=== PATIENT | female | born 1985 | race Two or more races ===

== ENCOUNTER → 2021-10-24 | Emergency (ER) | payer OTHER ==
[~2021-10-24] VITALS: Ht 170.2 cm; Wt 84.8 kg
[2021-10-24 21:01] VITALS: BP 117/78
== END | disposition left against medical advice (07) ==
LOC: ER 20:53
DX: J02.9 Acute pharyngitis, unspecified (principal); R05.9 Cough, unspecified; Z53.21 Procedure and treatment not carried out due to patient leaving prior to being seen by health care provider

== ENCOUNTER 2022-07-24 10:17 | Emergency (ER) | payer OTHER ==
[~2022-07-24] VITALS: Ht 170.2 cm; Wt 80.8 kg
[2022-07-24 10:37] VITALS: BP 112/63
[2022-07-24] MEDS ORDERED: diphenhdrAMINE HCL 50 MG/1 ML VL IM ONE (11:00)
[2022-07-24] MEDS ORDERED: methylPREDNISolone SOD SUCC 125 MG/2 ML VL IM ONE (11:00)
[2022-07-24] MEDS ORDERED: EPINEPHrine HCL 1 MG/1 ML AMP SC ONE (11:00)
[2022-07-24] MEDS ORDERED: HYDR50CA PO (11:10)
[2022-07-24] MEDS ORDERED: PRED20TA2 PO ×2 (11:10→11:37)
== END 2022-07-24 11:39 | disposition home or self-care (01) ==
LOC: ER 10:17
DX: T78.40XA Allergy, unspecified, initial encounter (principal); X58.XXXA Exposure to other specified factors, initial encounter
CPT/HCPCS: 96372; 99284; J0171; J1200; J2930

== ENCOUNTER 2022-07-26 12:09 | Emergency (ER) | payer OTHER ==
[~2022-07-26] VITALS: Ht 170.2 cm; Wt 79.5 kg
[~2022-07-26 12:09] MED LIST: HYDR50CA PO; PRED20TA2 PO
[2022-07-26 14:24] VITALS: BP 109/69
[2022-07-26] MEDS ORDERED: diphenhdrAMINE HCL 50 MG/1 ML VL IM ONE (14:45)
[2022-07-26 15:11] LABS: Basophils # (auto) 0 10 ^3/uL (0-0.2); Basophils % (auto) 0.3 % (0.0-2.0); Eosinophils # (auto) 0 10 ^3/uL (0-0.8); Hematocrit 40.3 % (36.0-46.0); Hemoglobin 13.5 g/dL (12.2-16.2); Lymphocytes % (auto) 7.1 % (10.0-50.0); Mean Corpuscular Hemoglobin 31.8 pg (28.0-32.0); Mean Corpuscular Hgb Conc. 33.5 g/dL (32.0-36.0); Mean Corpuscular Volume 94.9 fL (80.0-100.0); Monocytes # (auto) 0.3 10 ^3/uL (0-1.3); Monocytes % (auto) 2.4 % (0.0-12.0); Neutrophils # (auto) 12.8 10 ^3/uL (1.6-8.6); Neutrophils % (auto) 90.2 % (37.0-80.0); Red Blood Cells 4.24 10^6/uL (4.0-5.20); Red Cell Distribution Width 13.2 % (11.8-14.3); White Blood Cell 14.2 10^3/uL (4.4-10.8)
[2022-07-26] MEDS ORDERED: EPIN0.1I11 IM (15:11)
[2022-07-26] MEDS ORDERED: EPINEPHrine HCL 1 MG/1 ML AMP IM ONE (15:15)
[2022-07-26 15:30] LABS: Albumin 3.9 g/dL (3.4-5.0); Calcium 8.6 mg/dL (8.5-10.1)
[2022-07-26 15:33] LABS: BUN/Creatinine Ratio 25.4; Bilirubin, Total 0.7 mg/dL (0.2-1.0); Total Protein 7.4 g/dL (6.4-8.2)
== END 2022-07-26 16:43 | disposition home or self-care (01) ==
LOC: ER 12:09
DX: T78.40XA Allergy, unspecified, initial encounter (principal); X58.XXXA Exposure to other specified factors, initial encounter; Z79.899 Other long term (current) drug therapy
CPT/HCPCS: 36415; 80053; 85025; 96372; 99284; J0171; J1200

== ENCOUNTER 2022-10-27 23:06 | Emergency (ER) | payer OTHER ==
[~2022-10-27] VITALS: Ht 170.2 cm; Wt 84.2 kg
[~2022-10-27 23:06] MED LIST changes: +EPIN0.1I11 IM
[2022-10-28 02:02] LABS: Basophils # (auto) 0.1 10 ^3/uL (0-0.2); Basophils % (auto) 0.7 % (0.0-2.0); Eosinophils # (auto) 0.2 10 ^3/uL (0-0.8); Eosinophils % (auto) 1.6 % (0.0-7.0); Hemoglobin 12.7 g/dL (12.2-16.2); Lymphocytes # (auto) 2.4 10 ^3/uL (0.4-5.4); Lymphocytes % (auto) 22.3 % (10.0-50.0); Mean Corpuscular Hemoglobin 32.2 pg (28.0-32.0); Mean Corpuscular Hgb Conc. 34.4 g/dL (32.0-36.0); Mean Corpuscular Volume 93.5 fL (80.0-100.0); Monocytes # (auto) 0.7 10 ^3/uL (0-1.3); Monocytes % (auto) 6.3 % (0.0-12.0); Neutrophils # (auto) 7.5 10 ^3/uL (1.6-8.6); Neutrophils % (auto) 69.1 % (37.0-80.0); Nucleated Red Blood Cells % 0.1 %; Red Blood Cells 3.95 10^6/uL (4.0-5.20); Red Cell Distribution Width 12.6 % (11.8-14.3); White Blood Cell 10.9 10^3/uL (4.4-10.8)
[2022-10-28 02:20] LABS: Albumin 3.4 g/dL (3.4-5.0); BUN/Creatinine Ratio 29.5 (10.0-20.0); Calcium 9.2 mg/dL (8.5-10.1); Potassium 4.2 mmol/L (3.5-5.1)
[2022-10-28 02:23] LABS: Bilirubin, Total 0.4 mg/dL (0.2-1.0); Total Protein 7.8 g/dL (6.4-8.2)
[2022-10-28] MEDS ORDERED: ceFAZolin 1GM/50ML 50 ML IV ONE (02:30)
[2022-10-28] MEDS ORDERED: CEPH-510 PO (02:58)
[2022-10-28 03:21] VITALS: BP 121/75
== END 2022-10-28 03:29 | disposition home or self-care (01) ==
LOC: ER 23:06
DX: L76.82 Other postprocedural complications of skin and subcutaneous tissue (principal); N61.0 Mastitis without abscess
CPT/HCPCS: 36415; 71260; 80053; 83605; 85025; 87040; 96374; 99285; J0690